=== PATIENT | male | born 1940 | race Two or more races ===

== ENCOUNTER 2024-02-19 18:08 | Emergency (ER) | payer MEDICAID, OTHER ==
[~2024-02-19] VITALS: Ht 185.4 cm; Wt 91.0 kg
[2024-02-19 18:14] VITALS: BP 126/68; PULSE 74; RESP 18; TEMP 97.7; O2SAT 96
[2024-02-19] MEDS ORDERED: SODIUM CHLORIDE 0.9% 1,000 ML IV ONE (19:00)
[2024-02-19 20:07] LABS: BASOPHILS % 0.9 % (0.0-2.0); EOSINOPHILS % 1.4 % (0.0-5.0); HEMATOCRIT. 46.9 % (42.0-52.0); HEMOGLOBIN. 15.4 g/dL (14.0-18.0); LYMPHOCYTES % 17.2 % (20.0-50.0); MEAN CORPUSCULAR HEMOGLOBIN 28.7 pg (28.0-32.0); MEAN CORPUSCULAR HGB CONC 32.8 g/dL (31.0-37.0); MEAN CORPUSCULAR VOLUME 87.3 fL (80.0-94.0); MEAN PLATELET VOLUME 6.4 fl (7.4-10.4); MONOCYTES % 7.2 % (2.0-8.0); NEUTROPHILS % 73.3 % (40.0-76.0); PLATELET 360 x1000/uL (130-400); RED BLOOD CELL COUNT 5.36 mill/uL (4.7-6.1); RED CELL DISTRIBUTION WIDTH 14.7 % (11.6-14.6); WHITE BLOOD COUNT 10.5 x1000/uL (4.5-11.0)
[2024-02-19 20:11] LABS: CALCIUM 9.7 mg/dL (8.7-10.4); CARBON DIOXIDE 25 mEq/L (21-32); CHLORIDE 107 mEq/L (98-107); POTASSIUM 4.5 mEq/L (3.5-5.1); SODIUM 139 mEq/L (136-145)
[2024-02-19 20:16] LABS: CREATININE 1.5 mg/dL (0.6-1.3)
[2024-02-19 20:17] LABS: GLUCOSE 116 mg/dL (70-105); UREA NITROGEN BLOOD 24 mg/dL (9-23)
[2024-02-19 20:19] LABS: TROPONIN I HIGH SENSITIVITY 4 ng/L (3.0-53)
[2024-02-19 20:20] LABS: ETHANOL BLOOD < 10 mg/dL (<10)
== END 2024-02-19 20:40 | disposition home or self-care (01) ==
LOC: ER 18:08
DX: T54.91XA Toxic effect of unspecified corrosive substance, accidental (unintentional), initial encounter (principal); E11.9 Type 2 diabetes mellitus without complications; Z98.890 Other specified postprocedural states; Y92.9 Unspecified place or not applicable
CPT/HCPCS: 80048; 80320; 85025; 84484; 36415; 71045; 93005; 99285; J7030; G0480